=== PATIENT | female | born 1980 | race Caucasian/White ===

== ENCOUNTER 2018-08-25 22:05 | Emergency (ER) | payer OTHER ==
--- OUTSIDE RECORDS SUMMARY | 2018-08-25 22:08 | XMS REPORT | Continuity of Care Document ---
:1980 Author Organization Interface Problems Problem Status Onset Classification Date Comments Source Date Reported Abnormal Active Problem 07/08/2018 Data migrated Medical cytology 3 from [facility] findings<sup Centricity on >1</sup> 08/30/14. Oral Active Problem 07/08/2018 Data migrated Medical contraceptio 2 from [facility] n<sup>2</sup Centricity on > 08/30/14. Simple Active Problem 07/08/2018 Medical obesity Group Smoker Active Problem 07/08/2018 [facility] Group Medications Medication Details Route Status Patient Ordering Order Source Instructions Provider Date {7 (Ethinyl 35 Active Estradiol 0.035 microgram=1 019 Medical MG / tab, PO, Group norgestimate Daily, # 84 0.18 MG Oral tab, 2 Tablet) / 7 Refill(s), (Ethinyl Pharmacy: Estradiol 0.035 [facility] MG / Pharmacy norgestimate 482 0.215 MG Oral Tablet) / 7 (Ethinyl Estradiol 0.035 MG / norgestimate 0.25 MG Oral Tablet) / 7 (Inert Ingredients 1 MG Oral Tablet) } Pack [Tr {7 (Ethinyl 1 tab, PO, Active Estradiol 0.035 Daily, # 28 018 Medical MG / tab, 0 Group norgestimate Refill(s) 0.18 MG Oral Tablet) / 7 (Ethinyl Estradiol 0.035 MG / norgestimate 0.215 MG Oral Tablet) / 7 (Ethinyl Estradiol 0.035 MG / norgestimate 0.25 MG Oral Tablet) / 7 (Inert Ingredients 1 MG Oral Tablet) } Pack [Tr Allergies, Adverse Reactions, Alerts Substance Category Reaction Severity Reaction Status Date Comments Source type Reported traMADol<matt Assertion Drug Active Data p>1</sup> allergy 2 migrated Medical from [facility] Centricity on 07/31/14. Originally documented as TRAMADOL. Immunizations Immunization Date Given Site Status Last Updated Comments Source Results Order Results Value Reference Date Interpretation Comments Source Name Range Vital Signs Vital Sign Value Date Comments Source Weight 80 07/03/2018 Medical Group BMI Calculated 32.78 07/03/2018 [facility] Group Height 156.21 cm 07/03/2018 [facility] Group Systolic (mm Hg) 113 07/03/2018 Medical Group Diastolic (mm Hg) 75 07/03/2018 Medical Group Heart Rate 69 07/03/2018 [facility] Group Temperature Oral (F) 97.8 F 07/03/2018 Medical Group BMI Calculated 30.84 12/14/2017 Medical Group Weight 76.477 12/14/2017 Medical Group Height 157.48 cm 12/14/2017 [facility] Group Systolic (mm Hg) 101 12/14/2017 [facility] Group Diastolic (mm Hg) 70 12/14/2017 [facility] Group Heart Rate 71 12/14/2017 [facility] Group Temperature Oral (F) 98.4 F 12/14/2017 Medical Group Encounters Location Location Encounter Encounter Reason Attending ADM DC Status Source Details Type Number For Provider Date Date Visit Outpatient [id number] DORETHA 12/14 [facility] /2017 [facility] Outpatient [id number] Doretha 12/14 12/15 [facility] [id number] Doretha 07/03 [facility] /[address] [place] [address] Outpatient [id number] Doretha 07/03 07/04 [facility] [id number] 07/05 07/06 Primary Visit /2018 [facility] [id number] 07/05 07/06 Primary Visit /2018 [facility] Procedures Procedure Code Date Perfomer Comments Source Colposcopy of [id number] 01/03/2013 Medical cervix Group Incision and [id number] 04/03/2012 Medical drainage of Group perianal abscess Incision and [id number] 04/03/2010 Medical drainage of Group anorectal abscess
--- OUTSIDE RECORDS SUMMARY | 2018-08-25 22:09 | XMS REPORT | Summary of Care ---
:1980 Author Organization [facility] Address [address] [place] [address]- Encounter HQ Anayar_charmaine(FIN) [id number] Date(s): 07/05/18 - 07/06/18 [facility] [address] [place], [place] [id number] Vital Signs No data available for this section Problem List Condition Effective Dates Status Health Status Informant Abnormal cytology findings1 01/03/13 Active Oral contraception2 12/22/11 Active Simple obesity(Confirmed) Active Smoker(Confirmed) Active 1Data migrated from [facility] on 08/30/14.2Data migrated from [facility] on 08/30/14. Allergies, Adverse Reactions, Alerts Substance Reaction Severity Status traMADol1 Active 1Data migrated from [facility] on 07/31/14. Originally documented as TRAMADOL. Medications No data available for this section Results No data available for this section Immunizations No data available for this section Procedures Procedure Date Related Diagnosis Body Site Status Colposcopy of cervix 01/03/13 Completed Incision and drainage of perianal 2012 Completed abscess Incision and drainage of anorectal 2010 Completed abscess Social History Social History Type Response Smoking Status Current every day smoker; Type: Cigarettes; Exposure to Tobacco Smoke None; Cigarette Smoking Last 365 Days Yes; Reg Smoking Cessation Counseling Yes; Tobacco use per day: 6; Started at age: 21.0; entered on: 07/03/18 Assessment and Plan No data available for this section
--- OUTSIDE RECORDS SUMMARY | 2018-08-25 22:09 | XMS REPORT | Summary of Care ---
:1980 Author Organization [facility] Address [address] [place] [phone]- Encounter HQ Opal(FIN) [id number] Date(s): 07/03/18 - 07/03/[address] [address]- Discharge Disposition: Home or Self Care Attending Physician: Doretha Guzman MSN, RN, [employer] TECHNICIAN-C Vital Signs Most recent to oldest [Reference Range]: 1 Height 156.21 cm (07/03/18 10:49 AM) Temperature Oral [96.4-99.1 DegF] 97.8 DegF (07/03/18 10:49 AM) Blood Pressure [90-140/60-90 mmHg] 113/75 mmHg (07/03/18 10:49 AM) Peripheral Pulse Rate [60-100 bpm] 69 bpm (07/03/18 10:49 AM) Weight 80 kg (07/03/18 10:49 AM) Body Mass Index 32.78 m2 (07/03/18 10:49 AM) Problem List Condition Effective Dates Status Health Status Informant Abnormal cytology findings1 01/03/13 Active Oral contraception2 12/22/11 Active Simple obesity(Confirmed) Active Smoker(Confirmed) Active 1Data migrated from [facility] on 08/30/14.2Data migrated from [facility] on 08/30/14. Allergies, Adverse Reactions, Alerts Substance Reaction Severity Status traMADol1 Active 1Data migrated from [facility] on 07/31/14. Originally documented as TRAMADOL. Medications Tri-Sprintec oral tablet 35 microgram=1 tab, PO, Daily, # 84 tab, 2 Refill(s), Pharmacy: [facility] Start Date: 07/03/18 Stop Date: 03/12/19 Status: Ordered Results No data available for this section [...]
--- OUTSIDE RECORDS SUMMARY | 2018-08-25 22:09 | XMS REPORT | Summary of Care ---
:1980 Author Organization [facility] Address [address] [place] [phone]- Encounter HQ Opal(FIN) [id number] Date(s): 12/14/17 - 12/14/[address] [address] [phone] Discharge Disposition: Home or Self Care Attending Physician: Doretha Guzman MSN, RN, TRAVEL OT-C Vital Signs Most recent to oldest [Reference Range]: 1 Height 157.48 cm (12/14/17 10:35 AM) Temperature Oral [96.4-99.1 DegF] 98.4 DegF (12/14/17 10:35 AM) Blood Pressure [90-140/60-90 mmHg] 101/70 mmHg (12/14/17 10:35 AM) Peripheral Pulse Rate [60-100 bpm] 71 bpm (12/14/17 10:35 AM) Weight 76.477 kg (12/14/17 10:35 AM) Body Mass Index 30.84 m2 (12/14/17 10:35 AM) Problem List Condition Effective Dates Status Health Status Informant Abnormal cytology findings1 01/03/13 Active Oral contraception2 12/22/11 Active Simple obesity(Confirmed) Active 1Data migrated from [facility] on 08/30/14.2Data migrated from [facility] on 08/30/14. Allergies, Adverse Reactions, Alerts Substance Reaction Severity Status traMADol1 Active 1Data migrated from [facility] on 07/31/14. Originally documented as TRAMADOL. Medications Tri-Sprintec oral tablet 1 tab, PO, Daily, # 28 tab, 0 Refill(s) Start Date: 12/14/17 Status: Ordered Results No data available for [...] 6; Started at age: 21.0; entered on: 12/14/17 Assessment and Plan No data available for this section
--- OUTSIDE RECORDS SUMMARY | 2018-08-25 22:09 | XMS REPORT | Summary of Care ---
:1980 Author Organization [facility] Address [address] [place] [address]- Encounter HQ Anayar_charmaine(FIN) [id number] Date(s): 07/05/18 - 07/06/18 [facility] [address] [place], [place] [id number]- [phone] Vital Signs No data available for this [...]
[2018-08-26 00:08] LABS: Absolute Lymphocytes (CBC) 1.5 K/uL (0.7-4.9); Absolute Monocytes 0.5 K/uL (0.1-1.3); Absolute Neutrophil 10.6 K/uL (1.8-8.0); Basophils % 0.3 % (0-1.3); Eosinophils % 2.8 % (0-4.4); Hematocrit 42.4 % (36.0-45.0); Lymphocytes % 11.4 % (15.3-44.8); MPV 8.8 fL (7.6-11.3); Monocytes % 3.7 % (3.3-12.3); RBC Red Blood Cell Count 4.51 M/uL (3.86-4.86)
[2018-08-26 00:42] LABS: Albumin 3.2 g/dL (3.4-5.0); Bilirubin Direct 0.1 mg/dL (0-0.2); Bilirubin Total 0.5 mg/dL (0.2-1.0); Protein, Total 7.5 g/dL (6.4-8.2)
[2018-08-26] MEDS ORDERED: NA CHLORIDE 0.9% 1,000 ML ONE (00:51)
[2018-08-26] MEDS ORDERED: MEPERIDINE HCL 50 MG/ML AMP ONE (00:51)
[2018-08-26] MEDS ORDERED: ONDANSETRON 4 MG/2 ML VIAL ONE (00:51)
--- NOTE | 2018-08-26 03:44 | EDPHYS ---
Physician Documentation [facility] Name: Kaia Braga Age: 38 yrs Sex: Female : 1980 Arrival Date: 08/25/2018 Time: 22:06 Bed 26 Private MD: ED Physician Fan Triplett HPI: 08/26 00:25 This 38 yrs old Female presents to ER via Ambulatory with complaints of pkl Abdominal Pain, Nausea/Vomiting. 00:25 The patient presents with abdominal pain in the periumbilical area. Onset: The pkl symptoms/episode began/occurred today, 10 hour(s) ago. The symptoms do not radiate. Associated signs and symptoms: none. Historical: - Allergies: 08/25 22:12 tramadol; la1 - PMHx: 22:12 None; la1 - Immunization history:: Adult Immunizations up to date. - Social history:: Smoking status: Patient/guardian denies using tobacco. - Ebola Screening: : No symptoms or risks identified at this time. ROS: 08/26 00:25 Eyes: Negative for injury, pain, redness, and discharge, ENT: Negative for injury, pkl pain, and discharge, Neck: Negative for injury, pain, and swelling, Cardiovascular: Negative for chest pain, palpitations, and edema, Respiratory: Negative for shortness of breath, cough, wheezing, and pleuritic chest pain. Abdomen/GI: Positive for abdominal pain, nausea and vomiting, of the umbilical area. Back: Negative for acute changes. : Negative for urinary symptoms. MS/extremity: Negative for acute changes. Skin: Negative for rash. Neuro: Negative for altered mental status. Exam: 00:25 Head/Face: Normocephalic, atraumatic. Eyes: Pupils equal round and reactive to light, pkl extra-ocular motions intact. Lids and lashes normal. Conjunctiva and sclera are non-icteric and not injected. Cornea within normal limits. Periorbital areas with no swelling, redness, or edema. ENT: Nares patent. No nasal discharge, no septal abnormalities noted. Tympanic membranes are normal and external auditory canals are clear. Oropharynx with no redness, swelling, or masses, exudates, or evidence of obstruction, uvula midline. Mucous membranes moist. Neck: Trachea midline, no thyromegaly or masses palpated, and no cervical lymphadenopathy. Supple, full range of motion without nuchal rigidity, or vertebral point tenderness. No Meningismus. Chest/axilla: Normal chest wall appearance and motion. Nontender with no deformity. No lesions are appreciated. Cardiovascular: Regular rate and rhythm with a normal S1 and S2. No gallops, murmurs, or rubs. Normal PMI, no JVD. No pulse deficits. Respiratory: Lungs have equal breath sounds bilaterally, clear to auscultation and percussion. No rales, rhonchi or wheezes noted. No increased work of breathing, no retractions or nasal flaring. Abdomen/GI: Soft, non-tender, with normal bowel sounds. No distension or tympany. No guarding or rebound. No evidence of tenderness throughout. Back: No spinal tenderness. No costovertebral tenderness. Full range of motion. Skin: Warm, dry with normal turgor. Normal color with no rashes, no lesions, and no evidence of cellulitis. MS/ Extremity: Pulses equal, no cyanosis. Neurovascular intact. Full, normal range of motion. Neuro: Awake and alert, GCS 15, oriented to person, place, time, and situation. Cranial nerves II-XII grossly intact. Motor strength 5/5 in all extremities. Sensory grossly intact. Cerebellar exam normal. Normal gait. Vital Signs: 08/25 22:12 BP 131 / 81; Pulse 74; Resp 16; Temp 97.8; Pulse Ox 98% on R/A; Weight 77.11 kg; Height la1 5 ft. 1 in. (154.94 cm); 08/26 01:37 BP 99 / 68; Pulse 62; Resp 18; Temp 98; Pulse Ox 97% on R/A; mg2 02:15 BP 102 / 67; Pulse 62; Resp 18; Pulse Ox 98% ; Pain 3/10; fu 03:15 BP 120 / 74; Pulse 65; Pulse Ox 98% on R/A; Pain 3/10; fu 03:45 BP 120 / 75; Pulse 67; Resp 16; Pulse Ox 97% on R/A; Pain 3/10; fu 08/25 22:12 Body Mass Index 32.12 (77.11 kg, 154.94 cm) la1 MDM: 00:11 Patient medically screened. pkl 03:41 Data reviewed: vital signs, nurses notes, lab test result(s), radiologic studies, CT pkl scan. 08/25 23:49 Order name: Basic Metabolic Panel; Complete Time: 03:39 fu 08/25 23:49 Order name: CBC with Diff; Complete Time: 00:16 fu 08/25 23:49 Order name: Creatinine for Radiology; Complete Time: 03:39 fu 08/25 23:49 Order name: Hepatic Function; Complete Time: 03:39 fu 08/25 23:49 Order name: Lipase; Complete Time: 03:39 fu 08/26 00:20 Order name: XRAY Chest (1 view) pkl 08/26 00:20 Order name: CT Abd/Pelvis - W/Contrast pkl 08/25 23:49 Order name: IV Saline Lock; Complete Time: 23:54 fu 08/25 23:49 Order name: Labs collected and sent; Complete Time: 23:54 fu 08/25 23:50 Order name: Urine Dipstick-Ancillary (obtain specimen); Complete Time: 23:54 mg2 08/25 23:50 Order name: Urine Test (obtain specimen); Complete Time: 23:54 mg2 Administered Medications: 00:46 Drug: Zofran 4 mg Route: IVP; Site: right forearm; fu 01:54 Follow up: Response: Nausea is decreased fu 00:47 Drug: NS 0.9% 1000 ml Route: IV; Rate: 1000 ml; Site: right forearm; fu 01:54 Follow up: Response: No adverse reaction fu 00:47 Drug: Demerol 50 mg Route: IVP; Site: right forearm; fu 01:54 Follow up: Response: Pain is decreased fu Disposition: 08/26/18 03:43 Discharged to Home. Impression: Abdominal pain. Possible enteritis. - Condition is Stable. - Prescriptions for Tylenol- Codeine #3 300-30 mg Oral Tablet - take 1 tablet by ORAL route every 8 hours As needed; 20 tablet. Zofran 4 mg Oral Tablet - take 1 tablet by ORAL route every 12 hours As needed; 10 tablet. Cipro 500 mg Oral Tablet - take 1 tablet by ORAL route every 12 hours for 5 days; 10 tablet. - Medication Reconciliation Form, Thank You Letter, Antibiotic Education, Prescription Opioid Use form. - Follow up: Kasi Christian MD; When: 2 - 3 days; Reason: Re-evaluation by your physician. - Problem is new. - Symptoms have improved. Signatures: Dispatcher [employer] EDOH Fan Triplett MD MD pkl Wilman Snow RN RN la1 Zach Chavez, RN RN Stephane Pearson, RN RN mg2 Corrections: (The following items were deleted from the chart) 00:21 00:20 Oxygen Per Protocol ordered. pkl pkl 00:21 00:20 O2 Sat Monitoring ordered. pkl pkl 00:24 00:21 PROTIME (+INR)+COAG.LAB.BRZ ordered. EDMS EDMS 00:25 00:20 Cardiac monitoring ordered. pkl fc 00: 00:20 EKG - Nurse/Tech ordered. pkl fc 00: 00:21 Magnesium ordered. EDOH EDMS 00: 00:21 PROBNP+C.LAB.BRZ ordered. EDOH EDMS 00: 00:21 TROPONIN (EMERG DEPT USE ONLY)+C.LAB.BRZ ordered. [facility] EDOH 04:11 03:43 08/26/2018 03:43 Discharged to Home. Impression: Abdominal pain. Possible fu enteritis. Condition is Stable. Forms are Medication Reconciliation Form, Thank You Letter, Antibiotic Education, Prescription Opioid Use. Follow up: Kasi Christian; When: 2 - 3 days; Reason: Re-evaluation by your physician. Problem is new. Symptoms have improved. pkl
--- NOTE | 2018-08-26 03:44 | ER ---
Nurse's Notes [facility] Name: Kaia Braga Age: 38 yrs Sex: Female : 1980 Arrival Date: 08/25/2018 Time: 22:06 Bed 26 Private MD: Diagnosis: Abdominal pain. Possible enteritis Presentation: 08/25 22:10 Presenting complaint: Patient states: I have been having abd pain since about 1400 la1 today with nausea, vomited x 3. Transition of care: patient was not received from another setting of care. Onset of symptoms was August 25, 2018. Risk Assessment: Do you want to hurt yourself or someone else? Patient reports no desire to harm self or others. Initial Sepsis Screen: Does the patient meet any 2 criteria? No. Patient's initial sepsis screen is negative. Does the patient have a suspected source of infection? No. Patient's initial sepsis screen is negative. Care prior to arrival: None. 22:10 Method Of Arrival: Ambulatory la1 22:10 Acuity: NATHALY 3 la1 Historical: - Allergies: 22:12 tramadol; la1 - PMHx: 22:12 None; la1 - Immunization history:: Adult Immunizations up to date. - Social history:: Smoking status: Patient/guardian denies using tobacco. - Ebola Screening: : No symptoms or risks identified at this time. Screenin/26 01:37 Abuse screen: Denies threats or abuse. Denies injuries from another. Nutritional mg2 screening: No deficits noted. Tuberculosis screening: No symptoms or risk factors identified. Fall Risk IV access (20 points). Assessment: 08/25 23:00 General: Appears distressed, uncomfortable, Behavior is calm, cooperative, appropriate fu for age, Denies fever, feeling ill, fatigue, chills. Pain: Complains of pain in abdomen Pain does not radiate. Pain currently is 8 out of 10 on a pain scale. Pain began around 1400 today. Neuro: No deficits noted. Cardiovascular: Capillary refill < 3 seconds. Respiratory: Airway is patent Breath sounds are clear bilaterally. GI: Bowel sounds present X 4 quads. Abd is soft X 4 quads. : No signs and/or symptoms were reported regarding the genitourinary system. Derm: No signs and/or symptoms reported regarding the dermatologic system. Musculoskeletal: No signs and/or symptoms reported regarding the musculoskeletal system. 08/26 01:53 Reassessment: Patient is alert, oriented x 3, equal unlabored respirations, skin fu warm/dry/pink. Vital Signs: 08/25 22:12 BP 131 / 81; Pulse 74; Resp 16; Temp 97.8; Pulse Ox 98% on R/A; Weight 77.11 kg; Height la1 5 ft. 1 in. (154.94 cm); 08/26 01:37 BP 99 / 68; Pulse 62; Resp 18; Temp 98; Pulse Ox 97% on R/A; mg2 02:15 BP 102 / 67; Pulse 62; Resp 18; Pulse Ox 98% ; Pain 3/10; fu 03:15 BP 120 / 74; Pulse 65; Pulse Ox 98% on R/A; Pain 3/10; fu 03:45 BP 120 / 75; Pulse 67; Resp 16; Pulse Ox 97% on R/A; Pain 3/10; fu 08/25 22:12 Body Mass Index 32.12 (77.11 kg, 154.94 cm) la1 ED Course: 08/25 22:06 Patient arrived in ED. es 22:11 Triage completed. la1 22:12 Arm band placed on left wrist. la1 22:54 Zach Chavez, CATHLEEN is Primary Nurse. fu 08/26 00:11 Fan Triplett MD is Attending Physician. pkl 00:20 No provider procedures requiring assistance completed. fu 00:40 Initial lab(s) drawn, by me, sent to lab. Inserted saline lock: 22 gauge in right fu forearm, using aseptic technique. 02:29 Bed in low position. Side rails up X 1. fu 02:30 patient not in bed, to CT scan department. Patient moved to radiology via wheelchair. fu 02:59 CT Abd/Pelvis - W/Contrast In Process Unspecified. EDMS 03:26 Appears to be sleeping. fu 03:42 Kasi Christian MD is Referral Physician. pkl 03:50 IV discontinued, bleeding controlled, Pressure dressing applied. fu Administered Medications: 00:46 Drug: Zofran 4 mg Route: IVP; Site: right forearm; fu 01:54 Follow up: Response: Nausea is decreased fu 00:47 Drug: NS 0.9% 1000 ml Route: IV; Rate: 1000 ml; Site: right forearm; fu 01:54 Follow up: Response: No adverse reaction fu 00:47 Drug: Demerol 50 mg Route: IVP; Site: right forearm; fu 01:54 Follow up: Response: Pain is decreased fu Outcome: 03:43 Discharge ordered by MD. lennon 03:59 Discharged to home ambulatory, with family. fu 03:59 Condition: improved 03:59 Discharge instructions given to patient, Instructed on discharge instructions, follow up and referral plans. Demonstrated understanding of instructions, follow-up care, medications, Prescriptions given X 3. 04:11 Patient left the ED. fu Signatures: Dispatcher [employer] EDFan Wei MD MD pkl Salyer, Edna es Attema, Lee RN RN la1 Zach Chavez RN RN Stephane Sow RN RN mg2 Corrections: (The following items were deleted from the chart) 02:31 00:40 In radiology for Chest Single View+RAD.RAD.BRZ. ALEIDA fu
[2018-08-26] MEDS ORDERED: CIPROFLOXACIN HCL 500 MG TAB ONE (04:02)
[2018-08-26 04:19] VITALS: TEMP 98
[2018-08-26 04:23] VITALS: BP 120/75; O2SAT 97
--- NOTE | 2018-08-26 08:11 | RAD REPORT ---
EXAM DESCRIPTION: RAD - Chest Single View - 08/26/2018 12:40 am CLINICAL HISTORY: Abdominal pain COMPARISON: None. TECHNIQUE: AP portable chest image was obtained 0037 hours . FINDINGS: Lungs are clear. Heart and vasculature are normal. No measurable pleural effusion and no p neumothorax. No acute bony abnormality seen. No acute aortic findings suspected. IMPRESSION: No acute cardiopulmonary process.
--- NOTE | 2018-08-28 11:05 | RAD REPORT ---
EXAM DESCRIPTION: CT - Abdomen Pelvis W Contrast - 08/26/2018 2:59 am CLINICAL HISTORY: The patient is 38 years old and is Female; ABD PAIN TECHNIQUE: Axial computed tomography images of the abdomen and pelvis with intravenous contrast. S agittal and coronal reformatted images were created and reviewed. This CT exam was performed using one or more of the following dose reduction techniques: automated exposure control, adjustment of t he mA and/or kV according to patient size, and/or use of iterative reconstruction technique. COMPARISON: No relevant prior studies available. FINDINGS: LUNG BASES: Unremarkable. No mass. No consolidation. ABDOMEN: LIVER: Unremarkable. No mass. GALLBLADDER AND BILE DUCTS: No calcified stones. No ductal dilation. PANCREAS: No ductal dilation. No mass. SPLEEN: Unremarkable. ADRENALS: Unremarkable. No mass. KIDNEYS AND URETERS: Unremarkable. No solid mass. No hydronephrosis. STOMACH AND BOWEL: Extensive mucosal thickening involving the distal and terminal ileum is prese nt. The small bowel proximal is dilated and filled with oral contrast. Oral contrast is noted through out majority the small bowel. Contrast is present within the stomach. A moderate to large amount of s tool is present throughout colon. There is no bowel obstruction. PELVIS: APPENDIX: The appendix is normal in caliber without surrounding inflammation. BLADDER: Unremarkable. No mass. REPRODUCTIVE: Unremarkable as visualized. ABDOMEN and PELVIS: INTRAPERITONEAL SPACE: Free fluid is present within the pelvis. No free air. BONES/JOINTS: No acute fracture. SOFT TISSUES: The soft tissues are normal. VASCULATURE: Unremarkable. No abdominal aortic aneurysm. LYMPH NODES: Unremarkable. No enlarged lymph nodes. IMPRESSION: Extensive mucosal thickening with surrounding inflammation involving the distal and term inal ileum suggestive of enteritis. Given the location, Crohn's disease should be considered. No sugar l obstruction. Electronically signed by: Arianna Dos Santos MD 08/26/2018 3:05 AM CDT Due to temporary technical issues with the PACS/Fluency reporting system, reports are being signed by the in house radiologist as a courtesy to ensure prompt reporting. The interpreting radiologist is f ully responsible for the content of the report.
== END 2018-08-26 04:11 | disposition home or self-care (01) ==
LOC: ER 22:05
DX: R10.9 Unspecified abdominal pain (principal); Z88.5 Allergy status to narcotic agent
CPT/HCPCS: 36415; 71045; 74177; 80048; 80076; 83690; 85025; 96374; 96375; 99284; J2175; J2405; J7030; Q9967

== ENCOUNTER → 2021-12-15 | Day surgery (SDC) | payer OTHER ==
[2021-12-13 14:05] LABS: Absolute Lymphocytes (CBC) 2.8 K/uL (0.7-4.9); Hematocrit 43.1 % (36.0-45.0); Lymphocytes % 27.7 % (15.3-44.8); MCV 95.5 fL (80-100); MPV 8.5 fL (7.6-11.3); RBC Red Blood Cell Count 4.51 M/uL (3.86-4.86)
[2021-12-13 14:08] LABS: Potassium 3.8 mmol/L (3.5-5.1)
[~2021-12-15] MED LIST: LIDOCAINE 1% MPF 5 ML VIAL ONE; Ringers Lactate 1,000 ML IV ONE; propofoL 200 MG/20 ML VIAL IV ONE
--- NOTE | 2021-12-15 07:34 | ENDO RPT ---
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 pylori MEDICATIONS: Per Anesthesia. TOPICAL ANESTHETIC: none CONSENT: The patient understands the risks and benefits of the procedure and understands that these risks include, but are not limited to: sedation, allergic reaction, infection, perforation and/or bleeding. Alternative means of evaluation and treatment include, among others: physical exam, x-rays, and/or surgical intervention. The patient elects to proceed with this endoscopic procedure. DESCRIPTION OF PROCEDURE: During intra-op preparation period all mechanical medical equipment was checked for proper function. Hand hygiene and appropriate measures for infection prevention was taken. Procedure, possible complications, and alternatives including but not limited to the possibility of bleeding, perforation, tear, infection, sepsis, need for surgery, need for blood transfusion, and anesthesia related complications were explained to the patient. After the risks, benefits and alternatives of the procedure were thoroughly explained, Informed consent was verified, confirmed and timeout was successfully executed by the treatment team. The patient was placed in the left lateral position. The patient was anesthetized with topical anesthesia. Through the anesthetized oropharyngeal area, the scope was passed without any difficulty. The Pentax EG-[id number] ([id number]) endoscope was introduced through the mouth and advanced to the second portion of the duodenum. Retroflexed views revealed no abnormalities. The gastroscope was then slowly withdrawn and removed. Multiple erosions were found in the body and the antrum of the stomach. Multiple biopsies were obtained and sent to pathology. A biopsy for H. pylori was taken. Mild gastritis was found in the body and the antrum of the stomach. Multiple biopsies were obtained and sent to pathology. A biopsy for H. pylori was taken. With standard forceps, a biopsy was obtained and sent to pathology. ADVERSE EVENTS: There were no complications. IMPRESSIONS: 1. Multiple erosions were found in the body and the antrum of the stomach 2. Mild gastritis was found in the body and the antrum of the stomach RECOMMENDATIONS: 1. acid suppression therapy 2. anti-reflux regimen 3. await biopsy results 4. follow-up: office 2 week(s) 5. avoid NSAIDS 6. follow-up of helicobacter pylori status, treat if indicated REPEAT EXAM: Sergey Estevez DR eSigned: Sergey Estevez DR 12/15/2021 7:34 AM cc: CPT CODES: ICD9 CODES: PATIENT NAME: Kaia Oro MR#: [id number]
--- NOTE | 2021-12-15 07:40 | ENDO RPT ---
[address], [address] COLONOSCOPY PROCEDURE REPORT EXAM DATE: 12/15/2021 PATIENT NAME: Kaia Oro MR #: [id number] BIRTHDATE: 1980 ATTENDING: Sergey Estevez DR STATUS: outpatient SPORTS ADMINISTRATOR: Amari Torres RN and Fish [facility] INDICATIONS: The patient is a 41 yr old Female here for a colonoscopy due to History of Colitis / Possible Crohns PROCEDURE PERFORMED: Colonoscopy with biopsy MEDICATIONS: Per Anesthesia. ESTIMATED BLOOD LOSS: None CONSENT: The patient understands the risks and benefits of the procedure and understands that these risks include, but are not limited to: sedation, allergic reaction, infection, perforation and/or bleeding. Alternative means of evaluation and treatment include, among others: physical exam, x-rays, and/or surgical intervention. The patient elects to proceed with this endoscopic procedure. DESCRIPTION OF PROCEDURE: During intra-op preparation period all mechanical medical equipment was checked for proper function. Hand hygiene and appropriate measures for infection prevention was taken. Procedure, possible complications, alternatives including, but not limited to possibility of bleeding, perforation, tear, infection, sepsis, need for surgery, need for blood transfusion, were explained to the patient. After the risks, benefits and alternatives of the procedure were thoroughly explained, Informed consent was verified, confirmed and timeout was successfully executed by the treatment team. The patient was placed in the left lateral position. A digital rectal exam was performed and revealed internal hemorrhoids. After appropriate level of anesthesia, the scope was passed. The EC-[id number] ([id number]) endoscope was introduced through the anus and advanced to the terminal ileum which was intubated for a short distance. The quality of the prep was fair. The instrument was then slowly withdrawn as the colon was fully examined. Scope withdrawal time was 10 minutes. COLON FINDINGS: A diffuse patch of abnormal mucosa was found in the rectosigmoid colon. The mucosa was edematous, erythematous and had erosions. A biopsy of the area was performed using cold forceps. Multiple whitish eruptions of pus appearing debris were found in the terminal ileum consistent with pseudomembrane. A biopsy of the lesion was performed using cold forceps. Small internal hemorrhoids were found. Retroflexed views revealed no abnormalities. The scope was then completely withdrawn from the patient and the procedure terminated. ADVERSE EVENTS: There were no complications. IMPRESSIONS: Abnormal mucosa was found in the rectosigmoid colon RECOMMENDATIONS: 1. avoid NSAIDS 2. await biopsy results 3. fiber rich diet 4. follow-up: office 2 week(s) 5. Monitor for any evidence of rectal bleeding. 6. increase dietary water RECALL: Sergey Estevez DR eSigned: Sergey Estevez DR 12/15/2021 7:40 AM cc: CPT CODES: ICD9 CODES: PATIENT NAME: Kaia Oro MR#: [id number]
[2021-12-15 08:00] VITALS: O2SAT 100
[2021-12-15 08:01] VITALS: BP 108/76; TEMP 98.1
[2021-12-15 09:21] LABS: Urine Specific Gravity/Preg >1.030 (1.005-1.030)
== END ==
LOC: PRE 06:00
PROVIDERS: ATTEND Surgery
PROC: 0DB78ZX Excision of Stomach, Pylorus, Via Natural or Artificial Opening Endoscopic, Diagnostic (ICD-10-PCS; 2021-12-15)
PROC: 0DB68ZX Excision of Stomach, Via Natural or Artificial Opening Endoscopic, Diagnostic (ICD-10-PCS; 2021-12-15)
PROC: 0DB48ZX Excision of Esophagogastric Junction, Via Natural or Artificial Opening Endoscopic, Diagnostic (ICD-10-PCS; 2021-12-15)
PROC: 0DBH8ZX Excision of Cecum, Via Natural or Artificial Opening Endoscopic, Diagnostic (ICD-10-PCS; 2021-12-15)
PROC: 0DBN8ZX Excision of Sigmoid Colon, Via Natural or Artificial Opening Endoscopic, Diagnostic (ICD-10-PCS; 2021-12-15)
PROC: 0DBB8ZX Excision of Ileum, Via Natural or Artificial Opening Endoscopic, Diagnostic (ICD-10-PCS; 2021-12-15)
PROC: 0DB98ZX Excision of Duodenum, Via Natural or Artificial Opening Endoscopic, Diagnostic (ICD-10-PCS; principal; 2021-12-15 07:30)
PROC: 0DB88ZX Excision of Small Intestine, Via Natural or Artificial Opening Endoscopic, Diagnostic (ICD-10-PCS; 2021-12-15 07:30)
DX: K62.89 Other specified diseases of anus and rectum (principal); K29.50 Unspecified chronic gastritis without bleeding; K25.9 Gastric ulcer, unspecified as acute or chronic, without hemorrhage or perforation; K64.8 Other hemorrhoids; K52.9 Noninfective gastroenteritis and colitis, unspecified; R11.2 Nausea with vomiting, unspecified
CPT/HCPCS: 85025; 80048; 36415; 88312; 81025; 88305; 43239; 45380; J2704; J2001; J7120

== ENCOUNTER 2022-02-14 06:17 | Day surgery (SDC) | payer OTHER ==
[2022-02-09 13:21] LABS: Absolute Lymphocytes (CBC) 2.8 K/uL (0.7-4.9); Hematocrit 39.5 % (36.0-45.0); Lymphocytes % 26.1 % (15.3-44.8); MCV 95.3 fL (80-100); MPV 8.5 fL (7.6-11.3); RBC Red Blood Cell Count 4.15 M/uL (3.86-4.86)
[2022-02-09 13:31] LABS: Potassium 3.6 mmol/L (3.5-5.1)
--- NOTE | 2022-02-10 14:55 | EKG ---
Test Date: 2022-02-09 Test Time: 12:46:56 Communications Equipment Supervisor: MATILDE MEASUREMENT RESULTS: Intervals: Rate: 87 OK: 122 QRSD: 90 QT: 354 QTc: 425 [place]: P: 51 OK: 122 QRS: 51 T: 45 INTERPRETIVE STATEMENTS: Normal sinus rhythm Normal ECG No previous ECG available for comparison Electronically Signed On 02-10-22 14:53:15 SPACE TECHNOLOGIST by Tung Pierre
[2022-02-14] MEDS ORDERED: CEFOXITIN SODIUM 2 GM/VIAL ONE (06:36)
[2022-02-14] MEDS ORDERED: Ringers Lactate 1,000 ML IV ONE (06:36)
[2022-02-14] MEDS ORDERED: BUPIVACAINE 0.25% PF 10 ML VIAL ONE (07:52)
[2022-02-14] MEDS ORDERED: MIDAZOLAM HCL 2 MG/2 ML INJ ONE (08:04)
[2022-02-14] MEDS ORDERED: propofoL 200 MG/20 ML VIAL IV ONE (08:10)
[2022-02-14] MEDS ORDERED: ROCURONIUM 50 MG/5 ML VIAL IV ONE (08:11)
[2022-02-14] MEDS ORDERED: ONDANSETRON 4 MG/2 ML VIAL ONE ×3 (08:11→09:52)
[2022-02-14] MEDS ORDERED: FENTANYL CITR 100 MCG/2 ML ONE (08:11)
[2022-02-14] MEDS ORDERED: LIDOCAINE 2% MPF 5 ML VIAL ONE (08:13)
[2022-02-14] MEDS ORDERED: dexAMETHasone 10 MG/ML VIAL ONE (08:26)
[2022-02-14] MEDS ORDERED: KETOROLAC 30 MG/ML INJ ONE (09:26)
[2022-02-14] MEDS ORDERED: GLYCOPYRROLATE 0.2 MG/ML SYR ONE (09:27)
[2022-02-14] MEDS ORDERED: NEOSTIGMINE 1 MG/ML -5 ML ONE (09:28)
--- NOTE | 2022-02-14 09:34 | P.OP ---
Preoperative diagnosis: Biliary Colic / Dyskinesia Postoperative diagnosis: Biliary Colic / Dyskinesia Primary procedure: Laparoscopic Cholecystectomy with ICG cholangiography Anesthesia: GETA + Local Estimated blood loss: <5cc Specimen: Gallbladder Findings: floppy distended GB Complications: None Transferred to: Recovery Room Condition: Good
[2022-02-14] MEDS: HYDROMORPHONE HCL 1 MG/ML INJ ONE ×4 (09:57→10:12)
[2022-02-14] MEDS ORDERED: HYDROCODONE/APAP 7.5/325 MG TAB ONE (11:03)
[2022-02-14 11:21] VITALS: BP 107/60; TEMP 97.6; O2SAT 99
--- NOTE | 2022-02-14 13:45 | OP ---
Date of Procedure: 02/14/2022 Surgeon: Sergey Estevez MD, Preoperative Diagnosis: Biliary colic/dyskinesia. Postoperative Diagnosis: Biliary colic/dyskinesia. Procedure: Laparoscopic cholecystectomy with ICG cholangiography that is indocyanine green cholangio graphy. Anesthesia: General endotracheal plus local with 0.25% Marcaine. Estimated Blood Loss: Less than 5 cc. Specimen: Gallbladder. Findings: A floppy distended gallbladder was noted. Complications: None. Disposition: The patient was transferred to the recovery room in good condition. Procedure In Detail: After informed consent was obtained, the patient was brought to the operating r oom, prepped and draped in the usual sterile fashion after adequate anesthesia was achieved. The sup raumbilical area was anesthetized with 0.25% Marcaine, sharply incised. A 5 mm 0-degree optical troc ar was introduced into the abdomen without evidence of complication. Insufflation was obtained to 15 mmHg. There was no injury to vital structures upon entry into the abdomen and I placed 2 additional trocars, 1 in the epigastrium and 1 in the right upper quadrant. Both these were [address] d under direct visualization without evidence of complication. The umbilical trocar site was then up sized to an 11 mm trocar, placed under direct vision without evidence of complication. The patient w as positioned head up right-side up position. Ratcheted grasper was used to grasp the patient's gall bladder, placed towards the patient's right shoulder. Dissection continued down to the Yordan's po uch of the gallbladder to expose the infundibulum. Two structures identified as both cystic duct and cystic artery. These were doubly clipped with double titanium clips on the proximal side and singly on distal side of both cystic and duct cystic artery. The cystic artery went apposition to the cyst ic duct and was controlled. At this point, the gallbladder was removed from the hepatic fossa withou t evidence of complication. There was no spillage of bowel throughout the procedure. No additional hemostatic maneuvers required on the hepatic fossa. The gallbladder was placed in EndoCatch bag, rem tien through the umbilical trocar, sent off for pathologic examination. The hepatic fossa was then i rrigated copiously with sterile saline and then suctioned out until completely dry. Clips were found to be in good anatomic position without any evidence of bleeding or bile leakage. The patient was p ositioned back in neutral position. The umbilical trocar site was closed with a Rob-Marvel sutu re passer with 0 Vicryl in a running fashion with good approximation of tissues. The abdomen was com pletely desufflated under direct visualization without evidence of complication. All skin incisions were copiously irrigated and closed with 4-0 Monocryl in running fashion. Dermabond placed over top. The patient tolerated the procedure well without evidence of complication and transferred to PACU i n good condition. All counts were correct at the end of the case. Please note, ICG cholangiography was used to verify the critical view of safety during the procedure and verified the course of the cy stic duct and common duct junction. Cholangiography was successful at this point. TODD/BRANDY Voice ID: [id number] Report ID: [id number]
== END 2022-02-14 11:16 | disposition home or self-care (01) ==
LOC: OR 06:17
PROVIDERS: ATTEND Surgery
PROC: BF53200 Other Imaging of Gallbladder and Bile Ducts using Fluorescing Agent, Indocyanine Green Dye, Intraoperative (ICD-10-PCS; 2022-02-14)
PROC: 0FT44ZZ Resection of Gallbladder, Percutaneous Endoscopic Approach (ICD-10-PCS; principal; 2022-02-14 08:00)
DX: K80.10 Calculus of gallbladder with chronic cholecystitis without obstruction (principal); K82.8 Other specified diseases of gallbladder; Z88.6 Allergy status to analgesic agent
CPT/HCPCS: 93005; 85025; 80048; 36415; 81025; 88304; 47563; J2704; J2001; J2250; J3010; J1100; J1170 ×2; J2710; J7120; J0694; J2405 ×3